=== PATIENT | female | born 1985 | race American Indian/Alaskan Native ===

== ENCOUNTER 2019-02-25 09:38 | Emergency (ER) | payer SELFPAY ==
[2019-02-25] MEDS ORDERED: ULTRAM PO ONE (10:20)
[2019-02-25] MEDS ORDERED: TORADOL IM ONE (10:20)
[2019-02-25] MEDS ORDERED: ZITHROMAX PO ONE (10:21)
--- NOTE | 2019-02-25 10:51 | Emergency Department Report ---
ED ENT HPI - General Chief complaint: Earache Stated complaint: EAR DISCHARGE/HEADACHE Time Seen by Provider: 02/25/19 10:10 Source: patient Mode of arrival: Ambulatory Limitations: No Limitations - History of Present Illness Initial comments: 33 yo female b/l ear pain no fever no trauma recurrent ear infections w/o ent f/u scheduled follow up coming up complaint: ear pain (B/L) -: week(s) (3) Location: R ear, L ear Severity: severe Quality: other (PRESSURE) Consistency: constant Improves with: none Worsens with: none Context- Ear: other (hx of chronic recurent infections) Associated Symptoms: discharge from ear (right green d/c). denies: fever, cough, pain with swallowing - Related Data Previous Rx's Medication Instructions Recorded Last Taken Type Azithromycin [Zithromax TAB] 250 mg PO QDAY #4 tablet 02/25/19 Unknown Rx Ibuprofen [Motrin] 800 mg PO Q8HR PRN #30 tablet 02/25/19 Unknown Rx traMADol [Ultram 50 MG tab] 50 mg PO Q6HR PRN #20 tablet 02/25/19 Unknown Rx Allergies Allergy/AdvReac Type Severity Reaction Status Date / Time diphenhydramine Allergy Hives Verified 02/25/19 09:42 [From Benadryl] Penicillins Allergy Hives Verified 02/25/19 09:42 ED Dental HPI - General Chief complaint: Earache Stated complaint: EAR DISCHARGE/HEADACHE Time Seen by Provider: 02/25/19 10:10 Source: patient Mode of arrival: Ambulatory Limitations: No Limitations - Related Data Previous Rx's Medication Instructions Recorded Last Taken Type Azithromycin [Zithromax TAB] 250 mg PO QDAY #4 tablet 02/25/19 Unknown Rx Ibuprofen [Motrin] 800 mg PO Q8HR PRN #30 tablet 02/25/19 Unknown Rx traMADol [Ultram 50 MG tab] 50 mg PO Q6HR PRN #20 tablet 02/25/19 Unknown Rx Allergies Allergy/AdvReac Type Severity Reaction Status Date / Time diphenhydramine Allergy Hives Verified 02/25/19 09:42 [From Benadryl] Penicillins Allergy Hives Verified 02/25/19 09:42 ED Review of Systems ROS: Stated complaint: EAR DISCHARGE/HEADACHE Other details as noted in HPI Comment: All other systems reviewed and negative ED Past Medical Hx - Past Medical History Previous Medical History?: No - Surgical History Past Surgical History?: No - Social History Smoking Status: Current Every Day Smoker Substance Use Type: None - Medications Home Medications: Home Medications Medication Instructions Recorded Confirmed Last Taken Type Azithromycin [Zithromax TAB] 250 mg PO QDAY #4 tablet 02/25/19 Unknown Rx Ibuprofen [Motrin] 800 mg PO Q8HR PRN #30 tablet 02/25/19 Unknown Rx traMADol [Ultram 50 MG tab] 50 mg PO Q6HR PRN #20 tablet 02/25/19 Unknown Rx ED Physical Exam - General Limitations: No Limitations General appearance: alert - Head Head exam: Present: atraumatic, other (no sinus tenderness) - Eye Eye exam: Present: normal appearance - ENT ENT exam: Present: other - Expanded ENT Exam Expanded Ear exam: Present: normal external inspection TM/Canal exam: Erythema: Right TM, Left TM, Mastoid Tenderness: Left TM, Canal Tenderness: Right TM, Left TM Mouth exam: Present: normal external inspection Teeth exam: Present: normal inspection Throat exam: Positive: normal inspection - Neck Neck exam: Present: normal inspection. Absent: tenderness - Cardiovascular Cardiovascular Exam: Present: regular rate, normal rhythm - GI/Abdominal GI/Abdominal exam: Present: soft. Absent: distended, tenderness, guarding - Back Exam Back exam: Present: normal inspection, full ROM. Absent: tenderness - Neurological Exam Neurological exam: Present: alert, altered, CN II-XII intact. Absent: motor sensory deficit - Psychiatric Psychiatric exam: Present: normal affect - Skin Skin exam: Present: warm, dry, intact. Absent: rash ED Course Vital Signs 02/25/19 02/25/19 09:44 10:51 Temperature 98.3 F Pulse Rate 115 H 88 Respiratory 18 18 Rate Blood Pressure 131/79 Blood Pressure 130/76 [Left] O2 Sat by Pulse 100 100 Oximetry ED Medical Decision Making - Medical Decision Making b/l otitis with ear drainage zpack due to pcn allergy toradol for pain ent f/u advised repeat vitals show improved hr - Differential Diagnosis otits exerna/interna/mastoiditis Critical Care Time: No Critical care attestation.: If time is entered above; I have spent that time in minutes in the direct care of this critically ill patient, excluding procedure time. ED Disposition Clinical Impression: Otitis media Qualifiers: Laterality: bilateral Disposition: DC-01 TO HOME OR SELFCARE Is pt being admited?: No Does the pt Need Aspirin: No Condition: Stable Instructions: Otitis Media (ED) Additional Instructions: follow up with ENT. Prescriptions: Ibuprofen [Motrin] 800 mg PO Q8HR PRN #30 tablet PRN Reason: Pain, Moderate (4-6) traMADol [Ultram 50 MG tab] 50 mg PO Q6HR PRN #20 tablet PRN Reason: Pain Azithromycin [Zithromax TAB] 250 mg PO QDAY #4 tablet Referrals: [facility] [Provider Group] - 3-5 Days (primary care clinic) CA CARDONA MD [Staff Physician] - 3-5 Days (ENT doctor ) KRISTAN CLIFFORD MD [Staff Physician] - 3-5 Days (ENT doctor) Time of Disposition: 11:29
[2019-02-25 10:52] VITALS: BP 130/76
== END 2019-02-25 11:33 | disposition home or self-care (01) ==
LOC: ED 09:38
DX: H92.03 Otalgia, bilateral (principal); F17.200 Nicotine dependence, unspecified, uncomplicated; Z88.0 Allergy status to penicillin; Z88.8 Allergy status to other drugs, medicaments and biological substances
CPT/HCPCS: 96372; 99282; J1885